=== PATIENT | female | born 1960 | race Hispanic/Latino ===

== ENCOUNTER 2016-12-30 14:32 | Outpatient (CLI) | payer MEDICARE, OTHER ==
--- NOTE | 2016-12-30 16:10 | XRay Report ---
RIGHT HIP TWO VIEWS: 12/30/16 14:32:00 CLINICAL: Right hip pain. FINDINGS: No fracture or dislocation.Mild arthritis with central joint space narrowing and mild acetabular eburnation. Similar changes in the left hip. The pelvic bones are intact. Mild bilateral SI joint sclerosis with no erosions. Lower lumbar degenerative disc disease. IMPRESSION: Mild arthritis of both hips and mild bilateral sacroiliitis.
== END 2016-12-30 14:33 | disposition home or self-care (01) ==
LOC: SPVIMAG 14:32
PROVIDERS: ATTEND Anesthesiology
DX: M16.11 Unilateral primary osteoarthritis, right hip (principal); M51.36 Other intervertebral disc degeneration, lumbar region; M46.1 Sacroiliitis, not elsewhere classified